=== PATIENT | female | born 1985 | race Caucasian/White ===

== ENCOUNTER → 2023-09-14 | Outpatient (CLI) | payer BC ==
--- NOTE | 2023-09-14 16:23 | Diagnostic Imaging Report ---
INDICATION: Routine screening. COMPARISON: No prior mammograms are available for comparison. This is a baseline study. TECHNIQUE: 2D and 3D bilateral screening mammography was performed with CAD. FINDINGS: Both breasts are heterogeneously dense, limiting the sensitivity of mammography. No mass or malignant-appearing microcalcifications are identified. The axillae are unremarkable. IMPRESSION: No mammographic features suspicious for malignancy are identified. ACR BI-RADS Category 1: Negative. Result letter will be mailed to the patient. Note: At least 10% of breast cancer is not imaged by mammography. Dictated by: Dictated on workstation # [id number]
--- NOTE | 2023-09-14 17:51 | Diagnostic Imaging Report ---
PROCEDURE: US Non-ob pelvis comp/trans. INDICATION: PrimaryDx N93.9 ABNORMAL UTERINE AND VAGINAL BLEEDING TECHNIQUE: Multiple real time vicente scale sonographic images were obtained of the pelvis transabdominally and endovaginally. CORRELATION STUDY: None FINDINGS: UTERUS: 8.3 x 3.9 x 5.1 cm. The uterus appearing unremarkable. ENDOMETRIUM: 1.3 cm. Endometrial thickness upper limits of normal for premenopausal patient. However, is somewhat echogenic which is a nonspecific finding. Cervical nabothian cysts are present. RIGHT OVARY: 3.9 x 1.9 x 3 cm. LEFT OVARY: 2.8 x 2.4 x 2.8 cm. Cysts and/or follicles of both ovaries are present. Slightly dominant one right ovary 2.2 cm. No significant free pelvic fluid. IMPRESSION: 1. Endometrium is currently within normal limits but does have a an overall prominent appearance. Particularly given history of abnormal bleeding, short-term follow-up repeat imaging, approximately 2-3 months preferably in different phase of menstrual cycle would be recommended. Dictated by: Dictated on workstation # [id number]
== END ==
LOC: RAD 14:45
PROVIDERS: ATTEND Obstetrics & Gynecology
DX: Z12.31 Encounter for screening mammogram for malignant neoplasm of breast (principal); N93.9 Abnormal uterine and vaginal bleeding, unspecified
CPT/HCPCS: 76830; 76856; 77063; 77067